=== PATIENT | male | born 1980 | race Caucasian/White ===

== ENCOUNTER → 2019-06-19 | Outpatient (CLI) | payer OTHER ==
--- NOTE | 2019-06-19 09:50 | REP ---
Eight views cervical spine: 06/19/2019. Indication: Cervical radiculopathy. Comparison: None. Findings: There is no fracture, subluxation or dislocation. There is no instability demonstrated on the dynamic testing. The spinal canal and neural foramen appear patent. There is straightening of the cervical lordosis. Impression: No acute osseous injuries of the cervical spine. Electronically Signed by Danny Cabello DO 06/19/2019 09:42 A
== END ==
LOC: M RAD 08:43
PROVIDERS: ATTEND Surgery
DX: R20.0 Anesthesia of skin (principal)